=== PATIENT | female | born 1995 | race Caucasian/White ===

== ENCOUNTER → 2022-09-17 | Emergency (ER) | payer OTHER ==
[~2022-09-17] VITALS: Ht 170.2 cm; Wt 127.0 kg
[~2022-09-17] MED LIST: DOCUSATE SODIU100 MG PO; IRON1 TAB PO; KETO10TA2 PO; Mylicon 125MG PO; OXYC1TAB9 PO; PRENATAL CAPLE1 EACH PO
== END | disposition home or self-care (01) ==
LOC: ER 15:41
DX: F41.9 Anxiety disorder, unspecified (principal)

== ENCOUNTER 2024-09-29 13:49 | Outpatient (CLI) | payer OTHER | END 2024-09-29 13:52 | disposition home or self-care (01) | LOC: PRENATAL 13:49 | PROVIDERS: ATTEND Obstetrics & Gynecology Maternal & Fetal Medicine | DX: O36.80X0 Pregnancy with inconclusive fetal viability, not applicable or unspecified (principal); Z36.82 Encounter for antenatal screening for nuchal translucency; O34.219 Maternal care for unspecified type scar from previous cesarean delivery; Z3A.14 14 weeks gestation of pregnancy ==

== ENCOUNTER 2024-11-09 09:47 | Outpatient (CLI) | payer OTHER | END 2024-11-09 09:50 | disposition home or self-care (01) | LOC: PRENATAL 09:47 | PROVIDERS: ATTEND Obstetrics & Gynecology Maternal & Fetal Medicine | DX: O44.00 Complete placenta previa NOS or without hemorrhage, unspecified trimester (principal); O34.219 Maternal care for unspecified type scar from previous cesarean delivery; Z14.8 Genetic carrier of other disease; Z3A.20 20 weeks gestation of pregnancy ==

== ENCOUNTER 2025-02-01 10:12 | Outpatient (CLI) | payer OTHER | END 2025-02-01 10:13 | disposition home or self-care (01) | LOC: PRENATAL 10:12 | PROVIDERS: ATTEND Obstetrics & Gynecology Maternal & Fetal Medicine | DX: O26.849 Uterine size-date discrepancy, unspecified trimester (principal); O36.8199 Decreased fetal movements, unspecified trimester, other fetus; O34.219 Maternal care for unspecified type scar from previous cesarean delivery; Z3A.32 32 weeks gestation of pregnancy ==

== ENCOUNTER 2025-03-14 09:09 | Inpatient (IN) | payer OTHER ==
[~2025-03-14] VITALS: Ht 154.9 cm; Wt 3.2 kg
[2025-03-14 09:35] LABS: BASO % 0.4 % (0.1-1.2); EOS # 0.06 (0.04-0.54); EOS % 0.8 % (0.7-7.0); LYMPH # 1.14 (1.18-3.74); LYMPH % 15.2 % (19.3-53.1); MEAN PLATELET VOLUME 11.30 fl (9.4-12.4); MONO # 0.48 (0.24-0.82); MONO % 6.4 % (4.7-12.5); NEUT # 5.78 (1.56-6.13); NEUT % 76.9 % (34.0-71.1); RED CELL DISTRIBUTION WIDTH 19.0 % (11.6-14.4)
[2025-03-14 10:07] LABS: URINE APPEARANCE Clear; URINE BILIRRUBIN Negative (NEGATIVE); URINE BLOOD Negative; URINE COLOR Yellow; URINE GLUCOSE Negative (NEGATIVE); URINE KETONE Negative (NEGATIVE); URINE LEUKOCYTE Negative; URINE NITRATE Negative; URINE PROTEIN Trace (NEGATIVE); URINE UROBILINOGEN 1.0 E.U./dl
[2025-03-14 10:10] LABS: URINE BACTERIA 777.5 uL (0.0-1933); URINE EPITHELIAL CELLS 80.1 uL (0.0-38.8); URINE RBC 17.7 uL (0.0-20.8); URINE WBC 4.7 uL (0.0-23.2)
[2025-03-14 10:16] LABS: INR 0.95
[2025-03-14 10:40] LABS: URINE CAST 0.14 uL (0.0-1.40)
[2025-03-15 08:51] VITALS: BP 114/69
[2025-03-15] MEDS ORDERED: MORPHINE SULFATE 4 MG/ML CARTRIDGE IV SCH (13:00)
[2025-03-15] MEDS ORDERED: OXYTOCIN 10 UNITS/ML VIAL IV ONE (15:00)
[2025-03-15] MEDS ORDERED: ERYTHROMYCIN BASE OPHT 1GM EACH TUBE OP ONE (15:00)
[2025-03-15] MEDS ORDERED: CEFAZOLIN SODIUM 1,000 MG VIAL IV SCH (15:00)
[2025-03-15] MEDS ORDERED: MORPHINE SULFATE 4 MG/ML VIAL IV ONE (15:15)
[2025-03-15] MEDS ORDERED: KETOROLAC TROMETHAMINE 60 MG VIAL IM ONE ×2 (16:19→18:00)
[2025-03-15 17:00] VITALS: BP 118/59
[2025-03-15 20:26] LABS: BASO % 0.2 % (0.1-1.2); EOS # 0.01 (0.04-0.54); EOS % 0.1 % (0.7-7.0); LYMPH # 0.98 (1.18-3.74); LYMPH % 8.0 % (19.3-53.1); MEAN PLATELET VOLUME 10.90 fl (9.4-12.4); MONO # 0.74 (0.24-0.82); MONO % 6.0 % (4.7-12.5); NEUT # 10.49 (1.56-6.13); NEUT % 85.3 % (34.0-71.1); RED CELL DISTRIBUTION WIDTH 18.6 % (11.6-14.4)
[2025-03-16] VITALS: BP 102/58
[2025-03-16] MEDS ORDERED: PNV,CALCIUM 72/IRON/FOLIC ACID 1 TAB TABLET PO SCH (09:00)
[2025-03-16] MEDS ORDERED: OxyCODONE HCL 5 MG TABLET (ROXICODONE) PO SCH (09:00)
[2025-03-16] MEDS ORDERED: SIMETHICONE 125 MG CAPSULE PO SCH (09:00)
[2025-03-16] MEDS ORDERED: DOCUSATE SODIUM 100MG CAP PO SCH (09:00)
[2025-03-16 09:34] VITALS: BP 110/66
[2025-03-16 16:00] VITALS: BP 121/66
[2025-03-17] VITALS: BP 127/77
[2025-03-17 09:37] VITALS: BP 116/72
[2025-03-17 16:00] VITALS: BP 127/72
[2025-03-18 00:33] VITALS: BP 116/71
[2025-03-18 09:01] VITALS: BP 119/75; O2SAT 97
== END 2025-03-18 14:56 | disposition home or self-care (01) | DRG 785 ==
LOC: OB/GYN 03-15 07:00 → O/R 03-15 10:44 → OB/GYN 03-15 11:49
PROVIDERS: ADMIT Obstetrics & Gynecology; ATTEND Obstetrics & Gynecology
PROC: 0UB70ZZ Excision of Bilateral Fallopian Tubes, Open Approach (ICD-10-PCS; 2025-03-15)
PROC: 4A1HXCZ Monitoring of Products of Conception, Cardiac Rate, External Approach (ICD-10-PCS; 2025-03-15)
PROC: 10D00Z1 Extraction of Products of Conception, Low, Open Approach (ICD-10-PCS; principal; 2025-03-15 07:00)
DX: O34.211 Maternal care for low transverse scar from previous cesarean delivery (principal); Z3A.38 38 weeks gestation of pregnancy; Z37.0 Single live birth; Z30.2 Encounter for sterilization